=== PATIENT | male | born 1960 | race Caucasian/White ===

== ENCOUNTER → 2019-03-22 | Outpatient (CLI) | payer BC ==
--- NOTE | 2019-03-22 09:28 | PCVCIMAG ---
APPROVED REPORT Study performed: 03/22/2019 08:57:48 EXAM: Comprehensive 2D, Doppler, and color-flow Echocardiogram Patient Location: Echo lab Status: routine BSA: 1.89 HR: 74 bpmBP: 114/76 mmHg Rhythm: NSR Other Information Study Quality: Adequate Indications Chest Pain LIGHTHEADEDNESS 2D Dimensions IVSd: 12.59 (7-11mm) LVDd: 46.89 mm PWd: 9.47 (7-11mm)Ascending Ao: 32.35 (22-36mm) LVDs: 34.69 (25-40mm) Left Atrium: 42.57 (27-40mm) Aortic Root: 31.48 mm LV Single Plane 4CH: 49.39 % LV Single Plane 2CH: 60.05 % Biplane EF: 56.3 % Volumes Left Atrial Volume (Systole) Single Plane 4CH: 73.42 mLSingle Plane 2CH: 77.77 mL LA ESV Index: 43.00 mL/m2 Aortic Valve AoV Peak Juan Luis.: 1.05 m/s AO Peak Gr.: 4.41 mmHgLVOT Max P.89 mmHg LVOT Max V: 0.85 m/s Mitral Valve E/A Ratio: 1.1 MV Decel. Time: 261.19 ms MV E Max Juan Luis.: 0.55 m/s MV A Juan Luis.: 0.49 m/s IVRT: 110.73 ms Pulmonary Valve PV Peak Juan Luis.: 0.97 m/sPV Peak Gr.: 3.78 mmHg Pulmonary Vein P Vein S: 0.40 m/sP Vein A: 0.62 m/s P Vein D: 0.57 m/sP Vein A Dur.: 159.2 msec P Vein S/D Ratio: 0.70 Tricuspid Valve TR Peak Juan Luis.: 2.40 m/s TR Peak Gr.: 23.02 mmHg Left Ventricle The left ventricle is normal size. There is normal LV segmental wall motion. Borderline septal left ventricular hypertrophy. Left ventricular systolic function is normal. The left ventricular ejection fraction is within the normal range. LVEF is 55-60%. Grade I - abnormal relaxation pattern. Right Ventricle The right ventricle is normal size. The right ventricular systolic function is normal. Atria The left atrium size is normal. The right atrium size is normal. Aortic Valve The aortic valve is normal in structure. No aortic regurgitation is present. There is no aortic valvular stenosis. Mitral Valve The mitral valve is normal in structure. Mild mitral regurgitation. No evidence of mitral valve stenosis. Tricuspid Valve The tricuspid valve is normal in structure. Mild tricuspid regurgitation with PAP of 30 mmHg. Pulmonic Valve The pulmonary valve is normal in structure. Mild pulmonic regurgitation. Great Vessels The aortic root is normal in size. IVC is normal in size and collapses >50% with inspiration. Pericardium There is no pericardial effusion. There is no pleural effusion. <Conclusion> The left ventricle is normal size. LVEF is 55-60%. The aortic valve is normal in structure. The mitral valve is normal in structure. Mild mitral regurgitation. The tricuspid valve is normal in structure. Mild tricuspid regurgitation with PAP of 30 mmHg. The pulmonary valve is normal in structure. Mild pulmonic regurgitation. There is no pericardial effusion. There is no pleural effusion.
--- NOTE | 2019-03-22 17:31 | PCVCIMAG ---
APPROVED REPORT Imaging Protocol: Rest Tc-99m/Stress Tc-99m 1 day Study performed: 03/22/2019 10:24:53 Indication: Lightheadedness, GI Distress Patient Location: Out-Patient Stress Nurse: Nasrin King RN, Yoli Ambrocio RN [place] Tech:Rivas Chance NMTCB Ht: 5 ft 8 in Wt: 172 lbs BSA: 1.92 m2 HR: 86 bpm BP: 124/70 mmHg BMI: 26.1 Rhythm: Sinus Rhythm Medical History Medical History: Age, Hyperlipidemia, Smoker (Cigars) Medications: Lipitor Allergies: No known drug allergies Pretest Chest Pain Characteristics: No chest pain Exercise History: Physically active Resting Data Rest SPECT myocardial perfusion imaging was performed in supine position 45 minutes following the intravenous injection of 11.8 mCi of Tc-99m Sestamibi. Time of rest injection: 0930 Date: 03/22/2019 Administration Route: IV Administration Site: Right AC Exercise Stress At peak stress, the patient was injected intravenously with 32.8mCi of Tc-99m Sestamibi. Time of stress injection: 1100 Administration Route: IV Administration Site: Right AC Patient continued to exercise for 12 minute(s). Gated Stress SPECT was performed 45 minutes after stress injection. The images were gated to evaluate regional wall motion and calculate left ventricular ejection fraction. Stress Test Details Stress Test: Exercise stress testing was performed using a Solomon protocol. HRMax Heart Rate (APMHR): 163 bpm Resting HR: 86 bpmTarget HR (85% APMHR): 138 bpm Max HR Achieved: 160 bpm % of APMHR: 98 Recovery HR: 108 bpm HR response to stress: Normal HR response to stress BP Resting BP: 124/70 mmHg Max BP: 178/80 mmHg Recovery BP: 126/80 mmHg BP response to stress: Normal blood pressure response to stress. ECG Resting ECG: Sinus Rhythm Stress ECG: Sinus Tachycardia ST Change: Non-ischemic Maximum ST Deviation: 1 mm Arrhythmia: None Recovery ECG: Sinus Tachycardia Recovery ST Change: None Recovery ST Deviation: 0 mm Recovery Arrhythmia: None Clinical Reason for Termination: Maximal effort Stress Symptoms: Dyspnea Exercise duration: 12 min 40 sec Exercise capacity: 15.90 METs Overall Exercise Capacity for Age: Good Scale: Active Angina Score: None Symptoms resolved during recovery. Stress ECG Conclusion 1. Subjectively negative for ischemia 2. Elective cardiographically negative for ischemia 3. Excellent functional capacity Street Treadmill Score is 7.0 which is Low risk. Study Data Post stress, the left ventricular ejection was 78%.. SSS: 1 SRS: 0 SDS: 1 TID = 0.74. Perfusion There is a small area of moderatelymoderately reduced uptake in the basal segment of the inferior wall which is seen on the stress images as well as the resting images. This area thickens and moves normally and is most consistent with attenuation artifact. Wall Motion Normal left ventricular wall motion. Nuclear Conclusion ECG Findings: negative for ischemia Clinical Findings: negative for ischemia Nuclear Findings: negative for ischemia Exercise Capacity: normal Left Ventricular Function: normal 1. Low risk study 2. Post stress left ventricular ejection fraction of 78% without wall motion abnormalities Interpreted by: Indiana Rodriges MD Electronically Approved: 03/22/2019 17:30:44 <Conclusion> 1. Subjectively negative for ischemia 2. Elective cardiographically negative for ischemia 3. Excellent functional capacity
== END | disposition home or self-care (01) ==
LOC: PCVCIMAG 10:25
PROVIDERS: ATTEND Internal Medicine
DX: I08.8 Other rheumatic multiple valve diseases (principal); R07.9 Chest pain, unspecified; R42 Dizziness and giddiness; R19.8 Other specified symptoms and signs involving the digestive system and abdomen
CPT/HCPCS: 78452; 93017; 93306; A9500